=== PATIENT | female | born 1955 | race Caucasian/White ===

== ENCOUNTER → 2016-10-06 | Outpatient (CLI) | payer OTHER, MEDICAID ==
[2016-10-06 15:12] LABS: BASOPHILS % (AUTO) 0.9 % (0.2-1.0); EOSINOPHILS # (AUTO) 0.1 x10^3/uL (0.0-0.2); EOSINOPHILS % (AUTO) 2.1 % (0.9-2.9); HEMATOCRIT 27.8 % (36.0-47.0); HEMOGLOBIN 9.4 g/dL (12.0-16.0); LYMPHOCYTES # (AUTO) 0.5 X10^3/uL (1.3-2.9); LYMPHOCYTES % (AUTO) 14.9 % (21.0-51.0); MEAN CORPUSCULAR HEMOGLOBIN 33.8 pg (27.0-34.0); MEAN CORPUSCULAR HGB CONC 33.9 g/dL (33.0-35.0); MEAN CORPUSCULAR VOLUME 99.6 fL (80.0-100.0); MEAN PLATELET VOLUME 7.9 fL (7.4-11.0); MONOCYTES # (AUTO) 0.5 x10^3/uL (0.3-0.8); MONOCYTES % (AUTO) 13.6 % (0.0-13.0); NEUTROPHILS # (AUTO) 2.5 x10^3/uL (2.2-4.8); NEUTROPHILS % (AUTO) 68.5 % (42.0-75.0); PLATELET COUNT 232 X10^3/uL (150.0-450.0); RED BLOOD COUNT 2.79 X10^6/uL (3.5-5.4); RED CELL DISTRIBUTION WIDTH 12.5 % (11.6-16.5); WHITE BLOOD COUNT 3.6 X10^3/uL (3.6-10.0)
[2016-10-06 15:20] LABS: ALBUMIN 3.1 g/dL (3.4-5.0); CALCIUM 8.6 mg/dL (8.5-10.1); CARBON DIOXIDE 26.6 mmol/L (21-32); COR CA(FOR HYPOALB) 9.3 mg/dL (8.5-10.1); CREATININE 1.75 mg/dL (0.55-1.02); PHOSPHORUS 4.2 mg/dL (2.6-4.7); URIC ACID 7.7 mg/dL (2.6-6.0)
[2016-10-06 15:41] LABS: BILIRUBIN,URINE NEGATIVE (NEGATIVE); BLOOD/HEMOGLOBIN,URINE NEGATIVE (NEGATIVE); GLUCOSE, URINE NEGATIVE (NEGATIVE); KETONES,URINE NEGATIVE (NEGATIVE); LEUKOCYTE ESTERASE ,URINE 1+ (NEGATIVE); NITRITES,URINE NEGATIVE (NEGATIVE); PH,URINE 6.5 (5.0 - 8.0); PROTEIN,URINE NEGATIVE (NEGATIVE); UROBILINOGEN,URINE 2+ (NORMAL)
[2016-10-06 15:48] LABS: APPEARANCE,URINE HAZY (CLEAR); COLOR,URINE YELLOW (YELLOW); CREATININE,URINE 23.65 mg/dL (29-226); TOTAL PROTEIN,URINE < 6.0 mg/dl (0-11.9)
[2016-10-06 15:49] LABS: BACTERIA,URINE TRACE /HPF (NEGATIVE); RBC,URINE 0-2 /HPF (NEGATIVE); SQUAMOUS EPITHELIAL CELL,UR RARE /HPF (NEGATIVE)
== END ==
LOC: LAB 14:34
PROVIDERS: ATTEND Internal Medicine Geriatric Medicine
DX: N18.3 Chronic kidney disease, stage 3 (moderate) (principal)
CPT/HCPCS: 36415; 80069; 81001; 82570; 83970; 84157; 84550; 85025

== ENCOUNTER → 2016-10-30 | Outpatient (CLI) | payer OTHER, MEDICAID ==
[2016-10-30 12:51] LABS: ALBUMIN 3.2 g/dL (3.4-5.0); BLOOD UREA NITROGEN 21 mg/dL (7-18); CALCIUM 8.9 mg/dL (8.5-10.1); CARBON DIOXIDE 28.5 mmol/L (21-32); CHLORIDE 105 mmol/L (98-107); COR CA(FOR HYPOALB) 9.5 mg/dL (8.5-10.1); CREATININE 1.68 mg/dL (0.55-1.02); GLUCOSE 103 mg/dL (65-99); PHOSPHORUS 4.3 mg/dL (2.6-4.7); SODIUM 142 mmol/L (136-145); eGFR BLACK RACES 40 (>60); eGFR NON BLACK RACES 33 (>60)
== END ==
LOC: LAB 12:04
PROVIDERS: ATTEND Internal Medicine
DX: N18.3 Chronic kidney disease, stage 3 (moderate) (principal)
CPT/HCPCS: 36415; 80069

== ENCOUNTER → 2016-11-19 | Outpatient (CLI) | payer OTHER, MEDICAID | LOC: LAB 09:13 | DX: L81.4 Other melanin hyperpigmentation (principal) | CPT/HCPCS: 36415; 82533 ==

== ENCOUNTER → 2016-12-11 | Outpatient (CLI) | payer OTHER, MEDICAID ==
[2016-12-11 13:11] LABS: BILIRUBIN,URINE NEGATIVE (NEGATIVE); BLOOD/HEMOGLOBIN,URINE NEGATIVE (NEGATIVE); GLUCOSE, URINE NEGATIVE (NEGATIVE); KETONES,URINE NEGATIVE (NEGATIVE); LEUKOCYTE ESTERASE ,URINE NEGATIVE (NEGATIVE); NITRITES,URINE NEGATIVE (NEGATIVE); PROTEIN,URINE NEGATIVE (NEGATIVE); UROBILINOGEN,URINE NORMAL (NORMAL)
[2016-12-11 13:16] LABS: BASOPHILS # (AUTO) 0.1 X10^3/uL (0.0-0.1); BASOPHILS % (AUTO) 1.9 % (0.2-1.0); EOSINOPHILS # (AUTO) 0.1 x10^3/uL (0.0-0.2); EOSINOPHILS % (AUTO) 2.6 % (0.9-2.9); HEMATOCRIT 30.4 % (36.0-47.0); HEMOGLOBIN 10.4 g/dL (12.0-16.0); LYMPHOCYTES # (AUTO) 0.7 X10^3/uL (1.3-2.9); LYMPHOCYTES % (AUTO) 20.3 % (21.0-51.0); MEAN CORPUSCULAR HEMOGLOBIN 31.9 pg (27.0-34.0); MEAN CORPUSCULAR HGB CONC 34.2 g/dL (33.0-35.0); MEAN CORPUSCULAR VOLUME 93.4 fL (80.0-100.0); MEAN PLATELET VOLUME 8.1 fL (7.4-11.0); MONOCYTES # (AUTO) 0.4 x10^3/uL (0.3-0.8); MONOCYTES % (AUTO) 10.8 % (0.0-13.0); NEUTROPHILS # (AUTO) 2.1 x10^3/uL (2.2-4.8); NEUTROPHILS % (AUTO) 64.4 % (42.0-75.0); PLATELET COUNT 272 X10^3/uL (150.0-450.0); RED BLOOD COUNT 3.26 X10^6/uL (3.5-5.4); RED CELL DISTRIBUTION WIDTH 12.7 % (11.6-16.5); WHITE BLOOD COUNT 3.3 X10^3/uL (3.6-10.0)
[2016-12-11 13:18] LABS: APPEARANCE,URINE CLEAR (CLEAR); COLOR,URINE YELLOW (YELLOW)
[2016-12-11 13:19] LABS: AMORPHOUS SEDIMENT,UR TRACE /HPF (NEGATIVE); BACTERIA,URINE TRACE /HPF (NEGATIVE); RBC,URINE 0-2 /HPF (NEGATIVE); SQUAMOUS EPITHELIAL CELL,UR FEW /HPF (NEGATIVE)
[2016-12-11 13:20] LABS: ALBUMIN 3.4 g/dL (3.4-5.0); BLOOD UREA NITROGEN 18 mg/dL (7-18); CALCIUM 9.3 mg/dL (8.5-10.1); CARBON DIOXIDE 27.2 mmol/L (21-32); CHLORIDE 102 mmol/L (98-107); CREATININE 1.29 mg/dL (0.55-1.02); GLUCOSE 97 mg/dL (65-99); PHOSPHORUS 4.8 mg/dL (2.6-4.7); SODIUM 137 mmol/L (136-145); eGFR BLACK RACES 54 (>60); eGFR NON BLACK RACES 45 (>60)
[2016-12-11 13:26] LABS: TOTAL PROTEIN,URINE 2.6 mg/dl (0-11.9)
[2016-12-11 13:27] LABS: CREATININE,URINE 18.81 mg/dL (30-125)
== END ==
LOC: LAB 11:59
PROVIDERS: ATTEND Internal Medicine Geriatric Medicine
DX: N18.3 Chronic kidney disease, stage 3 (moderate) (principal)
CPT/HCPCS: 36415; 80069; 81001; 82570; 83970; 84157; 85025

== ENCOUNTER → 2017-05-01 | Outpatient (CLI) | payer OTHER, MEDICAID ==
--- NOTE | 2017-05-01 14:56 | RAD ---
HISTORY: Left rib pain. No history of trauma. Pain developed after defibrillator shocked occurred 3 weeks ago. Study: Left rib details: PA chest with left rib details submitted. Comparison: None Findings: Mild interstitial fibrosis is noted. Mild cardiomegaly is noted. An electronic cardiac device is pres ent on the left with its leads appearing to be in appropriate position. Patient is status post median sternotomy. There is deformity of the left 8th rib laterally. There appears to be cortical interrupt ion. This is felt to be a minimally displaced acute fracture. No evidence of pneumothorax is noted. IMPRESSION: 1. Mild cardiomegaly without evidence of failure. 2. Minimally displaced left 8th rib fracture, appearing acute. 3. No evidence of a pneumothorax. Reported By:
== END | disposition home or self-care (01) ==
LOC: RAD 14:10
PROVIDERS: ATTEND Internal Medicine Nephrology
DX: S29.8XXA Other specified injuries of thorax, initial encounter (principal); S22.32XA Fracture of one rib, left side, initial encounter for closed fracture; X58.XXXA Exposure to other specified factors, initial encounter
CPT/HCPCS: 71111

== ENCOUNTER 2017-07-16 18:00 | Emergency (ER) | payer OTHER, MEDICAID ==
[2017-07-16 18:26] VITALS: BMI 17.6
[2017-07-16 18:52] LABS: BASOPHILS # (AUTO) 0.1 X10^3/uL (0.0-0.1); BASOPHILS % (AUTO) 1.4 % (0.2-1.0); EOSINOPHILS % (AUTO) 0.9 % (0.9-2.9); HEMATOCRIT 24.5 % (36.0-47.0); HEMOGLOBIN 8.3 g/dL (12.0-16.0); LYMPHOCYTES # (AUTO) 0.8 X10^3/uL (1.3-2.9); LYMPHOCYTES % (AUTO) 20.6 % (21.0-51.0); MEAN CORPUSCULAR HEMOGLOBIN 30.1 pg (27.0-34.0); MEAN CORPUSCULAR VOLUME 88.4 fL (80.0-100.0); MEAN PLATELET VOLUME 7.4 fL (7.4-11.0); MONOCYTES # (AUTO) 0.4 x10^3/uL (0.3-0.8); MONOCYTES % (AUTO) 9.6 % (0.0-13.0); NEUTROPHILS # (AUTO) 2.7 x10^3/uL (2.2-4.8); NEUTROPHILS % (AUTO) 67.5 % (42.0-75.0); PLATELET COUNT 270 X10^3/uL (150.0-450.0); RED BLOOD COUNT 2.77 X10^6/uL (3.5-5.4); RED CELL DISTRIBUTION WIDTH 15.1 % (11.6-16.5)
--- NOTE | 2017-07-16 19:17 | DR.CP ---
HPI - PCP Primary Care Physician: DR CORINA PRADO IN [place] - HPI Comment HPI Comment: Pt also c/o face swelling x 1 month. Noticeably swollen, pt states this is gradually increasing. Has been told it was a muscle spasm and would respond to muscle relaxers - Complaint Chief Complaint:: OVER THE PAST TWO DAYS OR SO MY LEGS HAVE BECOME VERY WEAK. TODAY MICHAEL BEEN SHAKING ALL OVER AND HAD A FIVE MINUTE EPISODE OF CHEST PRESSURE ASSOCIATED WITH NAUSEA Self Treatment fo Chief Complaint: NONE - Source History Provided: Patient - Mode of Arrival Mode of Arrival: EMS - Timing Onset of Chief Complaint: 07/15/17 PMH - PMH Past Medical History: Yes Past Medical History: Anxiety, Arthritis, CHF, Coronary Artery Disease, GERD, Hypertension, PR, Renal Disease Past Medical History Comment: PR X 4, CERVICAL CANCER, AFIB Past Surgical History: Yes (has defibrillator, ) Surgical History: Angioplasty/Stents, , CABG/Valve Surgery, Hysterectomy, Other Past Surgical History Comment: BACK SURGERY X 3, NECK SURGERY, PACEMAKER, DEFIBRILLATOR - Family History History of Family Medical Conditions: Yes Family Medical History: PR, Coronary Artery Disease, Hypertension - Social History Does patient currently use any type of tobacco product: Yes Have you used tobacco products in the last 12 months: Yes Type of Tobacco Use: Cigarettes How many years tobacco product used: 20 Does any household member use tobacco: No Alcohol Use: None Do you use any recreational Drugs:: No Lives With: Spouse Lives Where: Home - infectious screening In the last 2 months have you had wt loss of >10#?: NO Have you had fever, night sweats or hemotysis?: No Have you traveled outside the country in the last 6 months?: No Isolation: Standard ROS - Review of Systems Constitutional: Weakness (both legs weak and shaky) Eyes: No Symptoms Reported (generalized facial swelling) Respiratoy: No Symptoms Reported Cardiovascular: Chest Pain (brief episode chest pain today) Gastrointestinal/Abdominal: Nausea Genitourinary: No Symptoms Reported Neurological: Weakness, Problems Walking All Other Systems: Reviewed and Negative PE - Vitals Vitals: Temperature 97.6 F Pulse Rate 61 Respiratory Rate 20 Blood Pressure 134/66 O2 Sat by Pulse Oximetry 100 - General Limitations: No Limitations General Appearance: Alert, In No Apparent Distress ROR - Labs Reviewed Laboratory Results Reviewed?: Yes (BNP 512, cardiacs ok) Result Diagrams: 07/16/17 18:40 07/16/17 18:40 Laboratory: WBC 4.0 X10^3/uL (3.6-10.0) 07/16/17 18:40 RBC 2.77 X10^6/uL (3.5-5.4) L 07/16/17 18:40 Hgb 8.3 g/dL (12.0-16.0) L 07/16/17 18:40 Hct 24.5 % (36.0-47.0) L 07/16/17 18:40 MCV 88.4 fL (80.0-100.0) 07/16/17 18:40 MCH 30.1 pg (27.0-34.0) 07/16/17 18:40 MCHC 34.0 g/dL (33.0-35.0) 07/16/17 18:40 RDW 15.1 % (11.6-16.5) 07/16/17 18:40 Plt Count 270 X10^3/uL (150.0-450.0) 07/16/17 18:40 MPV 7.4 fL (7.4-11.0) 07/16/17 18:40 Neut % 67.5 % (42.0-75.0) 07/16/17 18:40 Lymph % 20.6 % (21.0-51.0) L 07/16/17 18:40 [place] % 9.6 % (0.0-13.0) 07/16/17 18:40 Eos % 0.9 % (0.9-2.9) 07/16/17 18:40 Baso % 1.4 % (0.2-1.0) H 07/16/17 18:40 Neut # 2.7 x10^3/uL (2.2-4.8) 07/16/17 18:40 Lymph # 0.8 X10^3/uL (1.3-2.9) L 07/16/17 18:40 [place] # 0.4 x10^3/uL (0.3-0.8) 07/16/17 18:40 Eos # 0.0 x10^3/uL (0.0-0.2) 07/16/17 18:40 Baso # 0.1 X10^3/uL (0.0-0.1) 07/16/17 18:40 Absolute Nucleated RBC 0.1 /100WBC 07/16/17 18:40 INR Target Range - 07/16/17 18:40 INR 1.36 (0.8-1.3) H 07/16/17 18:40 PTT 38.2 SECONDS (22.9-36.5) H 07/16/17 18:40 PTT Comment - 07/16/17 18:40 D-Dimer 220 ng/mL (0-400) 07/16/17 18:40 Sodium 134 mmol/L (136-145) L 07/16/17 18:40 Corrected Sodium 134 mmol/L (136-145) L 07/16/17 18:40 Potassium 3.6 mmol/L (3.5-5.1) 07/16/17 18:40 Chloride 99 mmol/L (98-107) 07/16/17 18:40 Carbon Dioxide 24.8 mmol/L (21-32) 07/16/17 18:40 BUN 24 mg/dL (7-18) H 07/16/17 18:40 Creatinine 1.72 mg/dL (0.55-1.02) H 07/16/17 18:40 Est GFR (MDRD) Af Amer 39 (>60) L 07/16/17 18:40 Est GFR (MDRD) Non-Af 32 (>60) L 07/16/17 18:40 Glucose 119 mg/dL (65-99) H 07/16/17 18:40 Calcium 8.4 mg/dL (8.5-10.1) L 07/16/17 18:40 Corrected Calcium TNP 07/16/17 18:40 Magnesium 1.9 mg/dL (1.7-2.9) 07/16/17 18:40 Total Bilirubin 0.30 mg/dL (0.2-1.0) 07/16/17 18:40 AST 21 Units/L (15-37) 07/16/17 18:40 ALT 10 Units/L (12-78) L 07/16/17 18:40 Alkaline Phosphatase 53 Units/L (46-116) 07/16/17 18:40 Creatine Kinase 58 Units/L (26-192) 07/16/17 18:40 CK-MB (CK-2) 1.7 ng/mL (0-4.0) 07/16/17 18:40 CK/CKMB % Calc 2.9 % (<4) 07/16/17 18:40 Troponin I 0.03 ng/mL (0-1.5) 07/16/17 18:40 B-Natriuretic Peptide 519 pg/mL (0-79) H* 07/16/17 18:40 Total Protein 6.7 g/dL (6.4-8.2) 07/16/17 18:40 Albumin 3.6 g/dL (3.4-5.0) 07/16/17 18:40 Globulin 3.1 g/dL (2.5-4.5) 07/16/17 18:40 Albumin/Globulin Ratio 1.2 Ratio (1.1-2.1) 07/16/17 18:40 - XRAY XRAY Interpreted by: Radiologist XRAY Findings: nothing acute on PCXR - EKG Compared to prior EKG Dated: 07/16/17 (no definitive acute) Additional Notes - Additional Notes Additional Notes: Pt offered admission for r/o, CHF but she doesn't want to stay. Will return if symptoms recur, states she feels better now. She states she has been in a CHF clinic before - Diagnosis Discharge Problem: CHF exacerbation - Discharge Plan Disposition: HOME, SELF-CARE Condition: Stable - Follow ups/Referrals Follow ups/Referrals: [facility],None [Primary Care Provider] - 3 days - Instructions Additional Instructions: follow up regular doctor tomorrow. Return to ER tonight if needed
[2017-07-16 19:19] LABS: B-TYPE NATRIURETIC PEPTIDE 519 pg/mL (0-79)
[2017-07-16 19:26] LABS: ALANINE AMINOTRANSFERASE 10 Units/L (12-78); ALBUMIN 3.6 g/dL (3.4-5.0); ALKALINE PHOSPHATASE 53 Units/L (46-116); ASPARTATE AMINO TRANSFERASE 21 Units/L (15-37); BLOOD UREA NITROGEN 24 mg/dL (7-18); CALCIUM 8.4 mg/dL (8.5-10.1); CARBON DIOXIDE 24.8 mmol/L (21-32); CHLORIDE 99 mmol/L (98-107); CKMB % 2.9 % (<4); COR NA(FOR HYPERGLY) 134 mmol/L (136-145); CREATINE KINASE 58 Units/L (26-192); CREATINE KINASE MB 1.7 ng/mL (0-4.0); CREATININE 1.72 mg/dL (0.55-1.02); MAGNESIUM 1.9 mg/dL (1.7-2.9); SODIUM 134 mmol/L (136-145); TOTAL PROTEIN 6.7 g/dL (6.4-8.2); TROPONIN I 0.03 ng/mL (0-1.5); eGFR BLACK RACES 39 (>60); eGFR NON BLACK RACES 32 (>60)
--- NOTE | 2017-07-16 19:48 | RAD ---
HISTORY: 62-year-old female with weakness and chest pressure. Study: Frontal view of the chest. Comparison: Chest radiographs 05/01/2017 Findings: Surgical and support devices are stable. The trachea is midline. The cardiac silhouette is stably enlarged with low lung volumes and chronic prominence of the perihilar lung markings and interstitium. The lungs are clear without focal consol idation, effusion or pneumothorax. Soft tissues are unremarkable. Osseous structures are unremarkabl e. IMPRESSION: 1. No acute cardiopulmonary disease. Reported By:
[2017-07-16 20:37] VITALS: BP 131/60
== END 2017-07-16 20:53 | disposition home or self-care (01) ==
LOC: ER 18:17
DX: R22.0 Localized swelling, mass and lump, head (principal); R53.1 Weakness; R07.89 Other chest pain; R11.0 Nausea; R25.1 Tremor, unspecified
CPT/HCPCS: 36415; 71045; 80053; 82550; 82553; 83735; 83880; 84484; 85025; 85378; 85610; 85730; 99283; A4216

== ENCOUNTER → 2017-07-25 | Outpatient (CLI) | payer OTHER, MEDICAID ==
[2017-07-16 20:37] VITALS: BP 131/60
[2017-07-25 12:32] LABS: RETICULOCYTE % 1.86 % (0.8-2.2)
[2017-07-25 13:16] LABS: TSH (3RD GENERATION) 304.08 uIU/mL (0.358-3.74)
== END ==
LOC: LAB 11:47
PROVIDERS: ATTEND Internal Medicine Cardiovascular Disease
DX: D64.9 Anemia, unspecified (principal); R00.2 Palpitations; Z79.899 Other long term (current) drug therapy
CPT/HCPCS: 36415; 82607; 82728; 82746; 83540; 83550; 84436; 84443; 85045

== ENCOUNTER → 2017-07-26 | Outpatient (CLI) | payer OTHER, MEDICAID ==
[2017-07-16 20:37] VITALS: BP 131/60
== END ==
LOC: LAB 13:16
PROVIDERS: ATTEND Physician Assistant Medical
DX: D64.89 Other specified anemias (principal)
CPT/HCPCS: 82270

== ENCOUNTER → 2017-10-08 | Outpatient (CLI) | payer OTHER, MEDICAID | LOC: RT 14:37 | PROVIDERS: ATTEND Internal Medicine Cardiovascular Disease | DX: I48.91 Unspecified atrial fibrillation (principal) | CPT/HCPCS: 93005; 93010 ==

== ENCOUNTER → 2017-10-11 | Outpatient (CLI) | payer OTHER, MEDICAID ==
[2017-10-11 17:30] LABS: BASOPHILS % (AUTO) 1.4 % (0.2-1.0); EOSINOPHILS % (AUTO) 0.9 % (0.9-2.9); HEMATOCRIT 27.3 % (36.0-47.0); HEMOGLOBIN 9.2 g/dL (12.0-16.0); LYMPHOCYTES % (AUTO) 29.2 % (21.0-51.0); MEAN CORPUSCULAR HEMOGLOBIN 31.4 pg (27.0-34.0); MEAN CORPUSCULAR HGB CONC 33.7 g/dL (33.0-35.0); MEAN CORPUSCULAR VOLUME 93.2 fL (80.0-100.0); MEAN PLATELET VOLUME 7.4 fL (7.4-11.0); MONOCYTES # (AUTO) 0.3 x10^3/uL (0.3-0.8); MONOCYTES % (AUTO) 8.5 % (0.0-13.0); NEUTROPHILS # (AUTO) 2.1 x10^3/uL (2.2-4.8); PLATELET COUNT 255 X10^3/uL (150.0-450.0); RED BLOOD COUNT 2.93 X10^6/uL (3.5-5.4); RED CELL DISTRIBUTION WIDTH 18.7 % (11.6-16.5); WHITE BLOOD COUNT 3.4 X10^3/uL (3.6-10.0)
[2017-10-11 17:54] LABS: ALANINE AMINOTRANSFERASE 11 Units/L (12-78); ALBUMIN 3.8 g/dL (3.4-5.0); ALKALINE PHOSPHATASE 62 Units/L (46-116); ASPARTATE AMINO TRANSFERASE 24 Units/L (15-37); BLOOD UREA NITROGEN 22 mg/dL (7-18); CALCIUM 8.8 mg/dL (8.5-10.1); CARBON DIOXIDE 27.7 mmol/L (21-32); CHLORIDE 99 mmol/L (98-107); CREATININE 1.83 mg/dL (0.55-1.02); SODIUM 137 mmol/L (136-145); TOTAL PROTEIN 6.6 g/dL (6.4-8.2); eGFR BLACK RACES 36 (>60); eGFR NON BLACK RACES 30 (>60)
== END ==
LOC: LAB 16:53
PROVIDERS: ATTEND Internal Medicine Cardiovascular Disease
DX: I48.1 Persistent atrial fibrillation (principal); D64.89 Other specified anemias
CPT/HCPCS: 36415; 80053; 85025